=== PATIENT | female | born 2000 | race American Indian/Alaskan Native ===

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

== ENCOUNTER 2020-09-09 17:57 | Emergency (ER) | payer MEDICAID ==
[2020-09-09 18:04] VITALS: BP 141/85
--- NOTE | 2020-09-09 18:07 | Event Note ---
ED Screening Note Date of service: 09/09/20 Time: 18:07 ED Screening Note: 19-year-old -[place] female presents to the emergency room stating she had a syncopal movement while at work. She reports she has been feeling weak This initial assessment/diagnostic orders/clinical plan/treatment(s) is/are subject to change based on patients health status, clinical progression and re- assessment by fellow clinical providers in the ED. Further treatment and workup at subsequent clinical providers discretion. Patient/guardian urged not to elope from the ED as their condition may be serious if not clinically assessed and managed. Initial orders include:
[2020-09-09 18:36] LABS: Basophils % (Auto) 0.8 % (0.0-1.8); Eosinophils # (Auto) 0.2 K/mm3 (0.0-0.4); Hematocrit 36.5 % (30.3-42.9); Hemoglobin 11.9 gm/dl (10.1-14.3); Lymphocytes # (Auto) 1.4 K/mm3 (1.2-5.4); Lymphocytes % (Auto) 22.1 % (13.4-35.0); Mean Corpuscular HGB Conc 33 % (30-34); Mean Corpuscular Volume 85 fl (79-97); Monocytes # (Auto) 0.5 K/mm3 (0.0-0.8); Monocytes % (Auto) 8.7 % (0.0-7.3); Platelet Count 266 K/mm3 (140-440); Red Blood Count 4.27 M/mm3 (3.65-5.03); Red Cell Distribution Width 14.2 % (13.2-15.2)
[2020-09-09 18:53] LABS: Alanine Aminotransferase 9 units/L (7-56); Albumin 4.4 g/dL (3.9-5); BUN/Creatinine Ratio 14; Blood Urea Nitrogen 11 mg/dL (7-17); Calcium 9.8 mg/dL (8.4-10.2); Hemolysis Index 5
== END 2020-09-09 19:40 | disposition left against medical advice (07) ==
LOC: ED 17:57
DX: R53.1 Weakness (principal); R55 Syncope and collapse; Z53.21 Procedure and treatment not carried out due to patient leaving prior to being seen by health care provider
CPT/HCPCS: 36415; 80053; 85025; 93005

== ENCOUNTER 2020-09-18 11:27 | Emergency (ER) | payer MEDICAID ==
[2020-09-18 11:36] VITALS: BP 126/70
--- NOTE | 2020-09-18 13:58 | Emergency Department Report ---
ED General Adult HPI - General Chief complaint: Head Injury Stated complaint: HIT IN HEAD WORK NUJURY Time Seen by Provider: 09/18/20 12:02 Source: patient Mode of arrival: Ambulatory Limitations: No Limitations - History of Present Illness Initial comments: 19-year-old -[place] female patient presents with complaints of headache and bilateral neck pain after a slip and fall at work yesterday. 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 She states that she was referred to [facility], however they stated that she needed to be seen in the ER due to having a head injury. She denies any loss of consciousness, vision changes, dizziness, nausea/vomiting, memory loss, confusion, difficulty with speech/regulation, or numbness/tingling/weakness in her limbs. Patient states she has been using Tylenol for headache and it is not improving. She reports the headache is bilateral, but worse at the top left portion of her head. She rates her current headache as a 7/10 in severity. She denies worst headache of her life. - Related Data Previous Rx's Medication Instructions Recorded Last Taken Type Butalb/Acetamin/Caff 50-325-40 1 tab PO Q8HR PRN #10 tablet 09/18/20 Unknown Rx [Fioricet 50-325-40] methOCARBAMOL [Robaxin TAB] 1,500 mg PO Q8H PRN #20 tablet 09/18/20 Unknown Rx Allergies Allergy/AdvReac Type Severity Reaction Status Date / Time No Known Allergies Allergy Unverified 05/24/18 23:13 ED Review of Systems ROS: Stated complaint: HIT IN HEAD WORK NUJURY Other details as noted in HPI Constitutional: denies: chills, fever, malaise, weakness ENT: denies: throat pain Respiratory: denies: cough, shortness of breath Cardiovascular: denies: chest pain Gastrointestinal: denies: abdominal pain, nausea, vomiting, hematemesis, hematochezia Musculoskeletal: denies: joint swelling, arthralgia Skin: denies: rash, lesions, change in color Neurological: headache. denies: weakness, numbness, paresthesias, confusion, abnormal gait, vertigo Hematological/Lymphatic: denies: swollen glands ED Past Medical Hx - Past Medical History Hx Asthma: Yes - Surgical History Past Surgical History?: No - Social History Smoking Status: Current Every Day Smoker Substance Use Type: Alcohol - Medications Home Medications: Home Medications Medication Instructions Recorded Confirmed Last Taken Type Butalb/Acetamin/Caff 50-325-40 1 tab PO Q8HR PRN #10 tablet 09/18/20 Unknown Rx [Fioricet 50-325-40] methOCARBAMOL [Robaxin TAB] 1,500 mg PO Q8H PRN #20 tablet 09/18/20 Unknown Rx ED Physical Exam - General Limitations: No Limitations General appearance: alert, in no apparent distress - Head Head exam: Present: atraumatic, normocephalic, normal inspection - Eye Eye exam: Present: normal appearance. Absent: scleral icterus - Neck Neck exam: Present: tenderness (Bilateral trapezius muscle tenderness without vertebral tenderness or obvious deformity noted), full ROM - Respiratory Respiratory exam: Absent: respiratory distress - Cardiovascular Cardiovascular Exam: Present: regular rate - Extremities Exam Extremities exam: Present: full ROM - Back Exam Back exam: Present: full ROM - Neurological Exam Neurological exam: Present: alert, oriented X3, CN II-XII intact, normal gait. Absent: motor sensory deficit - Expanded Neurological Exam Expanded Cerebellar function: Finger to Nose: Normal, Heel to Briones: Normal, Romberg: Normal Sensory exam: Upper Extremity Light Touch: Normal, Lower Extremity Light Touch: Normal Motor strength exam: RUE: 5, LUE: 5, RLE: 5, LLE: 5 - Psychiatric Psychiatric exam: Present: normal affect, normal mood - Skin Skin exam: Present: warm, dry, intact, normal color. Absent: rash, cyanosis, diaphoretic, erythema, ecchymosis ED Course Vital Signs 09/18/20 09/18/20 11:34 11:35 Temperature 98.7 F Pulse Rate 98 H Respiratory 14 Rate Blood Pressure 126/70 O2 Sat by Pulse 99 Oximetry ED Medical Decision Making - Radiology Data Radiology results: report reviewed 19-year-old -[place] female patient presents with complaints of headache and bilateral neck pain after a slip and fall at work yesterday. 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 She states that she was referred to [facility], however they stated that she needed to be seen in the ER due to having a head injury. She denies any loss of consciousness, vision changes, dizziness, nausea/vomiting, memory loss, confusion, difficulty with speech/regulation, or numbness/tingling/weakness in her limbs. Patient states she has been using Tylenol for headache and it is not improving. She reports the headache is bilateral, but worse at the top left portion of her head. She rates her current headache as a 7/10 in severity. She denies worst headache of her life. Patient states she is not on blood thinners. - Medical Decision Making 19-year-old -[place] female patient presents with complaints of headache and bilateral neck pain after a slip and fall at work yesterday. 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 She states that she was referred to [facility], however they stated that she needed to be seen in the ER due to having a head injury. She denies any loss of consciousness, vision changes, dizziness, nausea/vomiting, memory loss, confusion, difficulty with speech/regulation, or numbness/tingling/weakness in her limbs. Patient states she has been using Tylenol for headache and it is not improving. She reports the headache is bilateral, but worse at the top left portion of her head. She rates her current headache as a 7/10 in severity. She denies worst headache of her life. Patient states she is not on blood thinners. [place] CT head rule determines patient is not in need of a CT head. She is neurologically intact on exam. Will treat for neck strain and mild concussion. Discussed in detail importance of brain rest and follow-up with primary care in 3 days. She is well-appearing, her vitals are normal, she is stable for discharge home. Strict return precautions were discussed in detail with patient who verbalized understanding. Critical care attestation.: If time is entered above; I have spent that time in minutes in the direct care of this critically ill patient, excluding procedure time. ED Disposition Clinical Impression: Headache due to injury of head and neck Neck strain Qualifiers: Encounter type: initial encounter Qualified Code(s): S16.1XXA - Strain of muscle, fascia and tendon at neck level, initial encounter Disposition: - TO HOME OR SELFCARE Is pt being admited?: No Condition: Stable Instructions: Head Injury, Adult, Concussion, Adult, Cervical Strain and Sprain Rehab-SportsMed Prescriptions: Butalb/Acetamin/Caff 50-325-40 [Fioricet 50-325-40] 1 tab PO Q8HR PRN #10 tablet PRN Reason: Headache methOCARBAMOL [Robaxin TAB] 1,500 mg PO Q8H PRN #20 tablet PRN Reason: Muscle spasm/tightness Referrals: [facility] [Provider Group] - 09/21/20 Forms: Work/School Release Form(ED)
== END 2020-09-18 14:02 | disposition home or self-care (01) ==
LOC: ED 11:27
DX: S16.1XXA Strain of muscle, fascia and tendon at neck level, initial encounter (principal); S09.90XA Unspecified injury of head, initial encounter; J45.909 Unspecified asthma, uncomplicated; F17.200 Nicotine dependence, unspecified, uncomplicated; Z79.899 Other long term (current) drug therapy; W01.0XXA Fall on same level from slipping, tripping and stumbling without subsequent striking against object, initial encounter; Y93.89 Activity, other specified; Y92.89 Other specified places as the place of occurrence of the external cause; Y99.8 Other external cause status
CPT/HCPCS: 99282